=== PATIENT | female | born 1955 | race Caucasian/White ===

== ENCOUNTER → 2018-10-17 | Outpatient (CLI) | payer BC ==
--- NOTE | 2018-10-18 08:40 | ECGEPIP ---
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
== END ==
LOC: M EKG 11:14
PROVIDERS: ATTEND Orthopaedic Surgery
DX: M23.211 Derangement of anterior horn of medial meniscus due to old tear or injury, right knee (principal); Z01.818 Encounter for other preprocedural examination

== ENCOUNTER → 2019-01-31 | Outpatient (CLI) | payer BC ==
[2019-01-31 11:10] LABS: HEMATOCRIT 38.4 % (36.0-47.0); HEMOGLOBIN 12.4 g/dl (12.0-15.5); MEAN CORPUSCULAR HGB CONC 32.3 g/dl (32.0-36.5); MEAN CORPUSCULAR VOLUME 92.8 fl (80.0-96.0); PLATELET COUNT, AUTOMATED 243 10^3/uL (150-450); RED BLOOD COUNT 4.14 10^6/uL (4.00-5.40); WHITE BLOOD COUNT 5.8 10^3/uL (4.0-10.0)
[2019-01-31 11:21] LABS: INR 0.95; PROTHROMBIN TIME 12.4 SECONDS (11.8-14.0)
[2019-01-31 11:35] LABS: ERYTHROCYTE SEDIMENTATION RATE 20 mm/hr (0-30)
[2019-01-31 11:44] LABS: ALBUMIN 3.7 GM/DL (3.2-5.2); ALT/SGPT 28 U/L (12-78); BILIRUBIN,TOTAL 0.6 MG/DL (0.2-1.0); BLOOD UREA NITROGEN 17 MG/DL (7-18); CALCIUM LEVEL 8.7 MG/DL (8.8-10.2); CARBON DIOXIDE LEVEL 30 MEQ/L (21-32); CHLORIDE LEVEL 107 MEQ/L (98-107); CREATININE FOR GFR 0.75 MG/DL (0.55-1.30); GLOMERULAR FILTRATION RATE > 60.0 (>45); GLUCOSE, FASTING 87 MG/DL (70-100); SODIUM LEVEL 141 MEQ/L (136-145)
--- NOTE | 2019-01-31 12:39 | ECGEPIP ---
[facility] Test Date: 2019-01-31 Pat Name: LUGENE SERVICE Department: Room: - Gender: Female Safety Spec: MONIKA : 1955 Requested By: Shanice Kirk Order Number: [id number] Reading MD: Roselia Saldivar Measurements Intervals [place] Rate: 77 P: 32 NV: 162 QRS: -7 QRSD: 82 T: 41 QT: 388 QTc: 441 Interpretive Statements SINUS RHYTHM WITH SINUS ARRHYTHMIA Left axis deviation PRWP SIMILAR TO 10/17/18 Electronically Signed on 01-31-2019 12:39:10 EST by Roselia Saldivar
--- NOTE | 2019-01-31 14:50 | REP ---
REASON FOR EXAM: Arthritis. History of connective tissue disorder. Preoperative evaluation. COMPARISON: 03/05/2003 which is the only prior. FINDINGS: The superior mediastinal structures are midline. The cardiac silhouette is unremarkable in size, shape, and position. The diaphragmatic surfaces of the lungs are regular, and the costophrenic angles are clear. The pulmonary bejarano are clear. The imaged osseous structures are intact. IMPRESSION: There is no acute cardiopulmonary disease. Electronically Signed by Easton Lemra DO 01/31/2019 03:28 P
== END ==
LOC: M LAB 10:40
PROVIDERS: ATTEND Orthopaedic Surgery
DX: Z01.810 Encounter for preprocedural cardiovascular examination (principal); M17.12 Unilateral primary osteoarthritis, left knee

== ENCOUNTER 2019-02-21 06:01 | Inpatient (IN) | payer BC ==
--- NOTE | 2019-02-19 09:11 | HPE ---
DATE OF ADMISSION: 02/21/2019 ATTENDING PHYSICIAN: Dr. Reagan Wasserman CHIEF COMPLAINT: Left knee pain and stiffness. HISTORY OF PRESENT ILLNESS: This is a pleasant 63-year-old female patient with progressively worsening left knee pain and stiffness who has failed to improve with conservative management. She has continued pain with weightbearing activities and has elected for surgery for her continued symptoms. She has consented for a left total knee arthroplasty by Dr. Wasserman. ALLERGIES: - PENICILLIN CURRENT MEDICATIONS: - Vivelle patch transdermally two times weekly - vitamin D 1000 units one by mouth daily - levothyroxine 88 mcg one by mouth daily - atorvastatin 20 mg one by mouth in the evening - citalopram 10 mg one by mouth daily PAST MEDICAL HISTORY: Hypothyroidism. Mood swings. SURGICAL HISTORY: section times two, cholecystectomy, hysterectomy, right knee arthroscopy. SOCIAL HISTORY: The patient is a nonsmoker, does not partake in drugs or alcohol. FAMILY HISTORY: Mother with history of thyroid problems, breast cancer and diabetes. Father living, history of heart attack and Alzheimer's. REVIEW OF SYSTEMS: Denies fever, chills, chest pain, shortness breath, nausea, vomiting, diarrhea, recent upper respiratory or urinary tract infection symptoms. Does report pain and stiffness with weightbearing activities in the left knee. PHYSICAL EXAMINATION: Height 62.5 inches, weight 174.2 pounds, temperature 97.6, blood pressure 132/72, pulse 73, respirations 14. Normocephalic, atraumatic. Neck is supple and nontender with no lymphadenopathy or jugular venous distention (JVD). Abdomen: Soft and nontender. S1 and S2 auscultated with no murmurs, rubs or gallops. Lungs: Clear to auscultation bilaterally with no wheezes, rales or rhonchi. Left lower extremity is well perfused and overlying skin is intact. There is no obvious deformity. Range of motion is limited secondary to discomfort. LABS: White count 5.8, red count 4.14, hemoglobin 12.4, hematocrit 38.4, ESR 20, PT 12.4, INR 0.95, BUN 17, creatinine 0.75. CHEST X-RAY: No acute cardiopulmonary process. ELECTROCARDIOGRAM (EKG): Sinus rhythm with sinus arrhythmia, left axis deviation, possible old inferior wall myocardial infarction (UT), poor R wave progression (PRWP), cannot rule out old septal UT, similar to 10/17/2018 EKG. MEDICAL OPTIMIZATION: Completed by Vira Avila, nurse practitioner, and reviewed today on chart. IMPRESSION: Symptomatic left knee degenerative changes. PLAN: Consented for a left total knee arthroplasty with Dr. Wasserman.
[~2019-02-21] VITALS: Ht 160 cm; Wt 78.0 kg
[2019-02-21] VITALS (8 sets, daily range): BP systolic 136–148; BP diastolic 76–86
[~2019-02-21 06:01] MED LIST: ATOR1TAB21 PO; CITA10TA5 PO; D3 H10002 PO; LEVO88TA3 PO; LIDOCAINE 1% MDV 20ML VIAL SQ PRN; VIVE0.1D TOP
[2019-02-21] MEDS ORDERED: MIDAZOLAM INJ 2 MG/2 ML VIAL (J2250) As Ordered ONE ×2 (06:38→07:47)
[2019-02-21] MEDS ORDERED: fentaNYL 100 MCG/2 ML INJECTION (J3010) As Ordered ONE ×2 (06:38→07:47)
[2019-02-21] MEDS ORDERED: BUPIVACAINE HCL 0.25% 10 ML VIAL As Ordered ONE (06:53)
[2019-02-21] MEDS ORDERED: TRANEXAMIC ACID 100 MG/ML 10ML VIAL As Ordered ONE (06:53)
[2019-02-21] MEDS ORDERED: CLINDAMYCIN INJ 900MG/6ML VIAL As Ordered ONE (06:54)
[2019-02-21] MEDS ORDERED: BUPIVACAINE LIPOSOME/PF 1.3% 20ML VIAL (13.3MG/ML)(EXPAREL)(C9290 PER1MG) As Ordered ONE (06:54)
[2019-02-21] MEDS ORDERED: EPINEPHrine INJ 1 MG/ML 1ML AMP As Ordered ONE (06:54)
[2019-02-21] MEDS ORDERED: ceFAZolin SOD 2 GM in IV 1 EA IV ONE (07:00)
[2019-02-21] MEDS ORDERED: ACETAMINOPHEN 500 MG TAB PO ONE (07:00)
[2019-02-21] MEDS ORDERED: LR 1,000 ML IV ONE (07:00)
[2019-02-21] MEDS ORDERED: PROPOFOL 200 MG/20 ML VIAL As Ordered ONE (07:47)
[2019-02-21] MEDS ORDERED: LIDOCAINE 2% INJ 100 MG/5 ML SDV (FOR ANES.) As Ordered ONE (07:47)
[2019-02-21] MEDS ORDERED: METOCLOPRAMIDE INJ 10MG/2ML VIAL (J2765) As Ordered ONE (07:54)
[2019-02-21] MEDS ORDERED: PHENYLephrine HCL 500 MCG/5 ML (100MCG/ML) SYRINGE (J2370) As Ordered ONE (08:08)
[2019-02-21] MEDS ORDERED: fentaNYL 100 MCG/2 ML INJECTION (J3010) IV ONE (08:15)
[2019-02-21] MEDS ORDERED: MIDAZOLAM INJ 2 MG/2 ML VIAL (J2250) IV ONE (08:15)
[2019-02-21] MEDS ORDERED: ONDANSETRON 4MG/2ML VIAL (J2405) As Ordered ONE (08:35)
[2019-02-21] MEDS ORDERED: PERCOCET 5MG/325MG TAB PO PRN ×2 (10:00→13:15)
[2019-02-21] MEDS ORDERED: HYDROMORPHONE HCL 0.5 MG/ 0.5 ML SYRINGE (J1170 PER 1) IV PRN ×3 (10:00)
[2019-02-21] MEDS ORDERED: LR 1,000 ML IV SCH ×2 (10:00)
[2019-02-21] MEDS ORDERED: ONDANSETRON 4MG/2ML VIAL (J2405) IV PRN (10:00)
[2019-02-21] MEDS ORDERED: ACETAMINOPHEN TAB 650MG DOSE (2X325MG) PO PRN (10:00)
[2019-02-21] MEDS ORDERED: fentaNYL 100 MCG/2 ML INJECTION (J3010) IV PRN (10:00)
[2019-02-21] MEDS ORDERED: FLEET ENEMA PR PRN (10:00)
--- NOTE | 2019-02-21 10:52 | REP ---
LEFT KNEE, TWO VIEWS: Two views left knee performed. A total knee prosthesis appears to be in good position. Osseous structures are intact and well aligned. Metallic skin genaro are seen anteriorly. Electronically Signed by Melvin Adorno MD 02/21/2019 03:51 P
[2019-02-21] MEDS: PERCOCET 5MG/325MG TAB PO PRN ×2 (13:22→20:43)
[2019-02-21] MEDS: ceFAZolin SOD 2 GM in IV 1 EA IV SCH ×2 (15:08→20:42)
--- NOTE | 2019-02-21 16:50 | CR.PDOC ---
General Date of Consultation: Feb 21, 2019 Consultation REASON FOR CONSULTATION/CHIEF COMPLAINT: Evaluation after surgical treatment HISTORY OF PRESENT ILLNESS: Patient is 62 years old female with history of hld and hypothyroidism presented hospital for planned left knee arthroplasty. The surgery was done today, patient tolerates it well. Patient denies fever, chills, nausea, vomiting, shortness of breath, palpitations, diarrhea or dysuria ALLERGIES: Please see below. HOME MEDICATIONS: Please see below. PAST MEDICAL HISTORY: Hypothyroidism, hyperlipidemia PAST SURGICAL HISTORY: section times two, cholecystectomy, hysterectomy, right knee arthroscopy. FAMILY HISTORY: Mother with history of thyroid problems, breast cancer and diabetes. Father living, history of heart attack and Alzheimer's. SOCIAL HISTORY: Tobacco use: denies ETOH:denies Illicit drug use: denies REVIEW OF SYSTEMS: 10 point review system negative except listed above PHYSICAL EXAMINATION: VITAL SIGNS: Please see below. GENERAL APPEARANCE: Well-nourished, well-developed, not in apparent distress HEENT: Normocephalic, atraumatic. Mucous members moist and pink CARDIOVASCULAR: Regular rate and rhythm. No murmurs, rubs or gallops. Radial pulses are intact. There is no lower extremity edema LUNGS: Diminished lung sounds ABDOMEN: Bowel sounds are hypoactive. Abdomen is soft and nontender. MUSCULOSKELETAL: Range of motion of left knee limited due to recent surgery, p ulses intact NEUROLOGICAL: Cranial nerves II-12 are grossly intact. Speech is not dysarthric LABORATORY DATA: Please see below. ASSESSMENT/PLAN: Patient is 62 years old female with history of hld and hypothyroidism presented hospital for planned left knee arthroplasty. HLd continue statin Hypothyroidism continue levothyroxine Status post left knee replacement Pain management, anticoagulation per ortho team Vital Signs/I&O Vital Signs Date Time Temp Pulse Resp B/P (MAP) Pulse Ox O2 Delivery O2 Flow Rate FiO2 02/21/19 15:30 98.7 104 18 148/82 (104) 94 02/21/19 14:00 Room Air 02/21/19 09:40 2 Allergies Coded Allergies: [place] (Verified Allergy, Intermediate, hives, 02/07/19) Coconut (Verified Allergy, Unknown, hives, 02/07/19) Penicillins (Verified Adverse Reaction, Intermediate, GI upset, 02/20/19) Tetracyclines (Verified Adverse Reaction, Intermediate, GI upset, 02/20/19) Home Medications Scheduled Atorvastatin Calcium (Atorvastatin Calcium) 20 Mg Tablet, 20 MG PO DAILY, (Reported) Cholecalciferol (Vitamin D3) (Vitamin D3) 1,000 Unit Capsule, 1,000 UNIT PO DAILY, (Reported) Citalopram Hydrobromide (Citalopram HBr) 10 Mg Tablet, 10 MG PO DAILY, (Reported) Estradiol (Vivelle-Dot) 0.1 Mg/24 Hr Patch.tdsw, 1 PATCH TOP 2XW for 30 Days, #8 (Reported) Levothyroxine Sodium (Levothyroxine Sodium) 88 Mcg Tablet, 88 MCG PO DAILY, (R eported) ROSINA ODOM DO Feb 21, 2019 16:50
[2019-02-21] MEDS ORDERED: ATORVASTATIN 20 MG TAB PO SCH (21:00)
[2019-02-22] MEDS: ceFAZolin SOD 2 GM in IV 1 EA IV SCH (02:10)
[2019-02-22] MEDS: PERCOCET 5MG/325MG TAB PO PRN (04:02)
[2019-02-22 05:53] VITALS: BP 139/72
[2019-02-22] MEDS ORDERED: LEVOTHYROXINE 88MCG TABLET (0.088 MG) PO SCH (06:00)
[2019-02-22 06:23] LABS: HEMATOCRIT 35.4 % (36.0-47.0); HEMOGLOBIN 11.8 g/dl (12.0-15.5); MEAN CORPUSCULAR HEMOGLOBIN 30.3 pg (27.0-33.0); MEAN CORPUSCULAR HGB CONC 33.3 g/dl (32.0-36.5); PLATELET COUNT, AUTOMATED 240 10^3/uL (150-450); RED BLOOD COUNT 3.89 10^6/uL (4.00-5.40); WHITE BLOOD COUNT 15.4 10^3/uL (4.0-10.0)
[2019-02-22 06:31] LABS: INR 1.16; PROTHROMBIN TIME 14.5 SECONDS (11.8-14.0)
[2019-02-22 06:49] LABS: BLOOD UREA NITROGEN 15 MG/DL (7-18); CALCIUM LEVEL 8.9 MG/DL (8.8-10.2); CARBON DIOXIDE LEVEL 27 MEQ/L (21-32); CHLORIDE LEVEL 106 MEQ/L (98-107); CREATININE FOR GFR 0.82 MG/DL (0.55-1.30); GLOMERULAR FILTRATION RATE > 60.0 (>45); GLUCOSE, FASTING 115 MG/DL (70-100); POTASSIUM SERUM 3.7 MEQ/L (3.5-5.1); SODIUM LEVEL 140 MEQ/L (136-145)
[2019-02-22] MEDS ORDERED: XARE10TA PO (07:04)
[2019-02-22] MEDS ORDERED: PERC5TAB12 PO (07:04)
--- NOTE | 2019-02-22 07:53 | RO ---
DATE OF PROCEDURE: 02/21/2019 PREPROCEDURE DIAGNOSIS: Left knee degenerative arthritis. POSTPROCEDURE DIAGNOSIS: Left knee degenerative arthritis. PROCEDURE: Left total knee arthroplasty using a size 6 cruciate-retaining Attune femoral cemented component with a size 4 tibial tray and a 5 mm rotating platform polyethylene insert and a 32 mm polyethylene button. All components were made by [employer]. SURGEON: Dr. Shanice Wasserman DRESS SHOE INSPECTOR: Ms. Adamaris Parker ANESTHESIA: Spinal with left femoral nerve block. COMPLICATIONS: None. SPECIMENS: Joint surface. ESTIMATED BLOOD LOSS: 20 mL. DESCRIPTION OF PROCEDURE: Antibiotics were given intravenously preoperatively and successful left femoral nerve block and then spinal anesthetic was induced, tourniquet placed on the left upper thigh and not inflated. The left lower extremity was carefully prepped and draped in the usual sterile fashion, then the leg was elevated. After appropriate time-out, the tourniquet was inflated. A longitudinal incision was made for a medial parapatellar approach to the knee. Bovie cautery was used to coagulate crossing vessels. Medial parapatellar arthrotomy performed and then subperiosteal dissection around the proximal medial and lateral tibial plateau was performed. Then, we everted the patella and flexed the knee, debrided the anterior cruciate ligament (ACL), placed the drill down the center of the femoral canal followed by the intramedullary whit and the distal femoral cutting jig set at 5 degree valgus cut for a left knee and 9 mm resection level. The block was pinned into position, and the distal femoral cut performed. AP sizing jig measured actually for a size 6. It was pinned into position with 3 degrees of external rotation dialed in for a left knee. The 4-in-1 block applied and anterior, posterior, chamfer cuts performed, as well as the anterior and posterior cuts. The sulcus cut osteotomy jig was then applied, and then sulcus osteotomy performed. Then, we exposed the proximal tibia using the extramedullary alignment jig to estimate being parallel to the mechanical axis, referencing off the medial tibial condyle; it was a 4 mm resection level. The secondary check with the extramedullary whit confirmed that we appeared to be parallel to the mechanical axis. Proximal tibial osteotomy thus was performed. The lamina baker bread was placed laterally, and we performed a completion medial meniscectomy, debridement of the posteromedial osteophytes. Then, placed the lamina baker bread medially and performed a completion lateral meniscectomy and debridement of the posterolateral osteophytes. The spacer block was applied. The 6 was a bit tight both in flexion and in extension in varus-valgus stress testing. However, the 5 I felt gave her a bit better range of motion, but she was still nice and stable. Thus, we then exposed the proximal tibia, sized for a #4 tibial tray, which was pinned into position followed by the reamer and broach and then placed the trial polyethylene. The trial femoral component fit nicely, brought the knee into extension, everted the patella, performed a patellar osteotomy, drilled the lug holes and measured for a 32 button. The trial was placed and patellofemoral tracking was noted to be anatomic. At this point then we removed all the trial components, after drilling the lug holes for the femur, and then placed Exparel in the subperiosteal tissues around the distal femur and the proximal tibia. I then prepared the bony surfaces for cementing with a copious amount of pulsatile lavage irrigant solution as my surgical assistant certified, Ms. Adamaris Parker, mixed the cement on the back table. She was also critical to the success of this difficult surgery by helping to manipulate the knee, apply appropriate soft tissue retraction, helped to mix the cement, helped to close the wound, helped to prepare the patient for surgery, allowing me to perform the operation smoothly, efficiently, and safely. Once all the bony surfaces were thoroughly dried, we cemented the tibial tray, removed excess cement, placed the polyethylene and cemented the femoral component, removed excess cement, then cemented the patellar button, held it with a clamp, then removed all the excess cement, then held the knee in full extension until the cement hardened as we then continued to copiously pulsatile lavage irrigate out the knee joint. Tranexamic acid was then placed inside the knee, and then we closed the apex of the arthrotomy with two #1 PDS sutures. The medial parapatellar area was closed with a #1 PDS suture and then the capsule was closed with a double-armed #1 running Stratafix. Then, the tourniquet was released. We irrigated between layers, closed the deep subdermal tissues with interrupted #2-0 PDS sutures, skin was closed with genaro, covered by an Optifoam, dry sterile bulky dressing. She was then transferred to the recovery room in stable condition. There were no intraoperative complications.
[2019-02-22] MEDS ORDERED: SENOKOT S TAB PO SCH (09:00)
[2019-02-22] MEDS ORDERED: MOM 30ML SUSPENSION UDC PO SCH (09:00)
[2019-02-22] MEDS ORDERED: VITAMIN D 1,000 INTERNATIONAL UNITS TABLET PO SCH (09:00)
[2019-02-22] MEDS ORDERED: CitaloPRAM (CeleXA) 10 MG TABLET PO SCH (09:00)
[2019-02-22] MEDS ORDERED: MIRALAX *UNIT DOSE* 17GM PACKET PO SCH (09:00)
[2019-02-22] MEDS ORDERED: RIVAROXABAN 10 MG TAB (XARELTO) PO SCH (18:00)
--- NOTE | 2019-02-25 12:12 | DSES ---
DATE OF ADMISSION: 02/21/2019 DATE OF DISCHARGE: 02/22/2019 ADMISSION DIAGNOSIS: Osteoarthritis left knee. OTHER DIAGNOSES: Hypothyroidism, elevated lipids. DISCHARGE DIAGNOSIS: Osteoarthritis left knee status post left total knee arthroplasty. OPERATION PERFORMED: Left total knee arthroplasty. HISTORY: 63-year-old female patient with progressively worsening left knee pain and stiffness. She failed to improve with conservative management. She was admitted for elective knee replacement on the left side. HOSPITAL COURSE: The patient was admitted on day of surgery and underwent a left total knee arthroplasty that was uneventful. She did well in the postoperative period and hospital course was without complications. She was up with physical therapy per their protocol and pain was controlled. On day of discharge, she was doing well. She will use oral pain medications for pain control. She will use ADONAY stockings for 30 days postoperative for deep vein thrombosis (DVT) prophylaxis. She will also use Xarelto 10 mg per their protocol for DVT prophylaxis. She will resume her preoperative medications and diet. She will follow up in our office in 10-14 days for surgical followup. She was given instructions to include but not limited to wound monitoring, activity limitations. Please refer to the medical record for further details.
== END 2019-02-22 12:35 | disposition home or self-care (01) | DRG 302 ==
LOC: M OR 06:01 → M MS5PR 11:00
PROVIDERS: ADMIT Orthopaedic Surgery; ATTEND Orthopaedic Surgery
PROC: 0SRD0J9 Replacement of Left Knee Joint with Synthetic Substitute, Cemented, Open Approach (ICD-10-PCS; principal; 2019-02-21 07:30)
DX: M17.12 Unilateral primary osteoarthritis, left knee (principal); F34.9 Persistent mood [affective] disorder, unspecified; E78.5 Hyperlipidemia, unspecified; E03.9 Hypothyroidism, unspecified; Z90.49 Acquired absence of other specified parts of digestive tract; Z90.79 Acquired absence of other genital organ(s); Z96.651 Presence of right artificial knee joint; Z79.899 Other long term (current) drug therapy; Z88.0 Allergy status to penicillin; Z88.1 Allergy status to other antibiotic agents; Z91.018 Allergy to other foods

== ENCOUNTER → 2021-08-04 | Outpatient (REF) | payer MEDICARE, BC ==
[~2021-08-04] MED LIST changes: -CITA10TA5 PO; +CITA10TA7 PO; -LIDOCAINE 1% MDV 20ML VIAL SQ PRN; +PERC5TAB12 PO; +XARE10TA PO
[2021-08-04 16:05] LABS: BASO % 0.5 % (0.0-1.0); EOS # 0.1 10^3/uL (0.0-0.5); EOS % 1.6 % (0.0-3.0); HEMATOCRIT 36.9 % (36.0-47.0); LYMPH # 1.2 10^3/uL (1.5-5.0); MEAN CORPUSCULAR HEMOGLOBIN 29.6 pg (27.0-33.0); MEAN CORPUSCULAR HGB CONC 32.5 g/dl (32.0-36.5); MEAN CORPUSCULAR VOLUME 91.1 fl (80.0-96.0); MONO # 0.5 10^3/uL (0.0-0.8); MONO % 7.3 % (2.0-8.0); NEUTROPHILS # 4.6 10^3/uL (1.5-8.5); NEUTROPHILS % 72.3 % (36.0-66.0); PLATELET COUNT, AUTOMATED 242 10^3/uL (150-450); RED BLOOD COUNT 4.05 10^6/uL (4.00-5.40); WHITE BLOOD COUNT 6.4 10^3/uL (4.0-10.0)
[2021-08-04 16:39] LABS: ALBUMIN 3.6 GM/DL (3.2-5.2); ALT/SGPT 26 U/L (12-78); BILIRUBIN,TOTAL 0.5 MG/DL (0.2-1.0); BLOOD UREA NITROGEN 17 MG/DL (7-18); CALCIUM LEVEL 9.1 MG/DL (8.8-10.2); CARBON DIOXIDE LEVEL 30 MEQ/L (21-32); CHLORIDE LEVEL 106 MEQ/L (98-107); CHOLESTEROL LEVEL 151 MG/DL (<200); CHOLESTEROL RISK RATIO 2.903 (<5); CREATININE FOR GFR 0.85 MG/DL (0.55-1.30); FREE T4 1.31 NG/DL (0.76-1.46); GLOMERULAR FILTRATION RATE > 60.0 (>45); GLUCOSE, FASTING 107 MG/DL (70-100); HDL CHOLESTEROL 52 MG/DL (>40); LDL CHOLESTEROL 68 MG/DL (<100); NON-HDL-C 99 MG/DL; POTASSIUM SERUM 3.6 MEQ/L (3.5-5.1); SODIUM LEVEL 142 MEQ/L (136-145); THYROID STIMULATING HORMONE 0.535 uIU/ML (0.358-3.740); TOTAL PROTEIN 6.8 GM/DL (6.4-8.2); TRIGLYCERIDES LEVEL 156 MG/DL (<150)
== END ==
LOC: M SFHCCLAY 13:15
PROVIDERS: ATTEND Nurse Practitioner Family
DX: E78.5 Hyperlipidemia, unspecified (principal); E03.9 Hypothyroidism, unspecified

== ENCOUNTER → 2022-02-16 | Outpatient (REF) | payer MEDICARE, BC ==
[2022-02-16 18:02] LABS: BASO % 0.6 % (0.0-1.0); EOS # 0.1 10^3/uL (0.0-0.5); EOS % 1.1 % (0.0-3.0); HEMATOCRIT 39.9 % (36.0-47.0); HEMOGLOBIN 12.6 g/dl (12.0-15.5); LYMPH # 1.1 10^3/uL (1.5-5.0); LYMPH % 15.2 % (24.0-44.0); MEAN CORPUSCULAR HEMOGLOBIN 29.7 pg (27.0-33.0); MEAN CORPUSCULAR HGB CONC 31.6 g/dl (32.0-36.5); MEAN CORPUSCULAR VOLUME 94.1 fl (80.0-96.0); MONO # 0.6 10^3/uL (0.0-0.8); MONO % 8.1 % (2.0-8.0); NEUTROPHILS # 5.4 10^3/uL (1.5-8.5); NEUTROPHILS % 74.6 % (36.0-66.0); PLATELET COUNT, AUTOMATED 247 10^3/uL (150-450); RED BLOOD COUNT 4.24 10^6/uL (4.00-5.40); WHITE BLOOD COUNT 7.2 10^3/uL (4.0-10.0)
[2022-02-16 18:37] LABS: ALBUMIN 3.8 G/DL (3.2-5.2); ALKALINE PHOSPHATASE 95 U/L (46-116); ALT/SGPT 20 U/L (7.0-40); AST/SGOT 17 U/L (<34); BILIRUBIN,TOTAL 0.5 MG/DL (0.3-1.2); BLOOD UREA NITROGEN 15 MG/DL (9-23); CARBON DIOXIDE LEVEL 29 MMOL/L (20-31); CHLORIDE LEVEL 103 MMOL/L (98-107); CHOLESTEROL LEVEL 153 MG/DL (<200); CHOLESTEROL RISK RATIO 2.74 (<5); CREATININE FOR GFR 0.79 MG/DL (0.55-1.30); FREE T4 1.53 NG/DL (0.89-1.76); GLOMERULAR FILTRATION RATE > 60.0 (>45); GLUCOSE, FASTING 103 MG/DL (74-106); HDL CHOLESTEROL 55.7 MG/DL (>40); LDL CHOLESTEROL 72.5 MG/DL (<100); NON-HDL-C 97 MG/DL; POTASSIUM SERUM 4.2 MMOL/L (3.5-5.1); SODIUM LEVEL 140 MMOL/L (136-145); TOTAL PROTEIN 6.8 G/DL (5.7-8.2); TRIGLYCERIDES LEVEL 124 MG/DL (<150)
[2022-02-16 19:29] LABS: THYROID STIMULATING HORMONE 0.277 uIU/ML (0.55-4.78)
[2022-02-16 20:03] LABS: HEMOGLOBIN A1c 5.2 % (4.0-6.0)
== END ==
LOC: M SFHCCLAY 10:03
PROVIDERS: ATTEND Nurse Practitioner Family
DX: Z00.00 Encounter for general adult medical examination without abnormal findings (principal); F41.8 Other specified anxiety disorders; E03.9 Hypothyroidism, unspecified; E78.5 Hyperlipidemia, unspecified; Z13.1 Encounter for screening for diabetes mellitus

== ENCOUNTER → 2022-08-24 | Outpatient (CLI) | payer MEDICARE, BC ==
[2022-08-24 12:04] LABS: HEMATOCRIT 36.9 % (36.0-47.0); MEAN CORPUSCULAR HEMOGLOBIN 29.6 pg (27.0-33.0); MEAN CORPUSCULAR HGB CONC 32.5 g/dl (32.0-36.5); MEAN CORPUSCULAR VOLUME 91.1 fl (80.0-96.0); PLATELET COUNT, AUTOMATED 232 10^3/uL (150-450); RED BLOOD COUNT 4.05 10^6/uL (4.00-5.40); WHITE BLOOD COUNT 5.6 10^3/uL (4.0-10.0)
[2022-08-24 12:13] LABS: ERYTHROCYTE SEDIMENTATION RATE 15 mm/hr (0-30)
[2022-08-24 12:26] LABS: INR 1.04; PROTHROMBIN TIME 13.8 SECONDS (12.5-14.5)
[2022-08-24 12:35] LABS: ALBUMIN 3.6 G/DL (3.2-5.2); ALKALINE PHOSPHATASE 91 U/L (46-116); ALT/SGPT 16 U/L (7.0-40); AST/SGOT 15 U/L (<34); BILIRUBIN,TOTAL 0.6 MG/DL (0.3-1.2); BLOOD UREA NITROGEN 16 MG/DL (9-23); CALCIUM LEVEL 8.3 MG/DL (8.3-10.6); CARBON DIOXIDE LEVEL 30 MMOL/L (20-31); CHLORIDE LEVEL 104 MMOL/L (98-107); CREATININE FOR GFR 0.76 MG/DL (0.55-1.30); GLOMERULAR FILTRATION RATE > 60.0 (>45); GLUCOSE, FASTING 99 MG/DL (74-106); POTASSIUM SERUM 3.4 MMOL/L (3.5-5.1); SODIUM LEVEL 140 MMOL/L (136-145); TOTAL PROTEIN 6.5 G/DL (5.7-8.2)
== END ==
LOC: M RAD 10:51
PROVIDERS: ATTEND Orthopaedic Surgery
DX: Z01.818 Encounter for other preprocedural examination (principal); M17.11 Unilateral primary osteoarthritis, right knee; Z79.01 Long term (current) use of anticoagulants

== ENCOUNTER → 2023-02-19 | Outpatient (REF) | payer MEDICARE, BC ==
[2023-02-19 17:48] LABS: BASO % 0.5 % (0.0-1.0); EOS # 0.1 10^3/uL (0.0-0.5); EOS % 1.7 % (0.0-3.0); HEMATOCRIT 38.3 % (36.0-47.0); HEMOGLOBIN 12.3 g/dl (12.0-15.5); LYMPH # 1.2 10^3/uL (1.5-5.0); MEAN CORPUSCULAR HEMOGLOBIN 29.4 pg (27.0-33.0); MEAN CORPUSCULAR HGB CONC 32.1 g/dl (32.0-36.5); MEAN CORPUSCULAR VOLUME 91.4 fl (80.0-96.0); MONO # 0.4 10^3/uL (0.0-0.8); MONO % 7.1 % (2.0-8.0); NEUTROPHILS # 4.1 10^3/uL (1.5-8.5); NEUTROPHILS % 70.2 % (36.0-66.0); PLATELET COUNT, AUTOMATED 247 10^3/uL (150-450); RED BLOOD COUNT 4.19 10^6/uL (4.00-5.40); WHITE BLOOD COUNT 5.9 10^3/uL (4.0-10.0)
[2023-02-19 18:16] LABS: ALBUMIN 3.6 G/DL (3.2-5.2); ALKALINE PHOSPHATASE 85 U/L (46-116); ALT/SGPT 15 U/L (7.0-40); AST/SGOT 16 U/L (<34); BILIRUBIN,TOTAL 0.7 MG/DL (0.3-1.2); BLOOD UREA NITROGEN 19 MG/DL (9-23); CALCIUM LEVEL 8.9 MG/DL (8.3-10.6); CARBON DIOXIDE LEVEL 30 MMOL/L (20-31); CHLORIDE LEVEL 107 MMOL/L (98-107); CHOLESTEROL LEVEL 170 MG/DL (<200); CHOLESTEROL RISK RATIO 3.25 (<5); CREATININE FOR GFR 0.73 MG/DL (0.55-1.30); GLOMERULAR FILTRATION RATE > 60.0 (>45); GLUCOSE, FASTING 81 MG/DL (74-106); HDL CHOLESTEROL 52.2 MG/DL (>40); LDL CHOLESTEROL 96.6 MG/DL (<100); NON-HDL-C 117.8 MG/DL; POTASSIUM SERUM 3.8 MMOL/L (3.5-5.1); SODIUM LEVEL 142 MMOL/L (136-145); TOTAL PROTEIN 6.8 G/DL (5.7-8.2); TRIGLYCERIDES LEVEL 106 MG/DL (<150)
[2023-02-19 18:17] LABS: FREE T4 1.18 NG/DL (0.89-1.76)
[2023-02-19 18:18] LABS: THYROID STIMULATING HORMONE 1.041 uIU/ML (0.55-4.78)
== END ==
LOC: M SFHCCLAY 10:46
PROVIDERS: ATTEND Nurse Practitioner Family
DX: Z00.00 Encounter for general adult medical examination without abnormal findings (principal); F41.8 Other specified anxiety disorders; E03.9 Hypothyroidism, unspecified; R03.0 Elevated blood-pressure reading, without diagnosis of hypertension